=== PATIENT | male | born 2000 | race Caucasian/White ===

== ENCOUNTER 2021-02-09 20:26 | Emergency (ER) | payer SELFPAY ==
[~2021-02-09] VITALS: Ht 182.9 cm; Wt 81.8 kg
[2021-02-09 20:39] VITALS: BP 118/68
== END 2021-02-09 21:36 | disposition home or self-care (01) ==
LOC: ER 20:27
DX: M25.531 Pain in right wrist (principal); M79.631 Pain in right forearm
CPT/HCPCS: 73090; 99283